=== PATIENT | female | born 1960 | race Caucasian/White ===

== ENCOUNTER → 2024-01-30 | Outpatient (CLI) | payer MEDICARE, BC | LOC: M WHC 09:25 | PROVIDERS: ATTEND Family Medicine | DX: Z12.31 Encounter for screening mammogram for malignant neoplasm of breast (principal) ==

== ENCOUNTER → 2025-01-21 | Outpatient (CLI) | payer MEDICARE, BC ==
[2025-01-21 10:47] LABS: BASO # 0.0 10^3/uL (0.0-0.2); BASO % 0.8 % (0.0-1.0); EOS # 0.1 10^3/uL (0.0-0.5); EOS % 1.1 % (0.0-3.0); LYMPH # 1.3 10^3/uL (1.5-5.0); LYMPH % 25.1 % (24.0-44.0); MONO # 0.5 10^3/uL (0.0-0.8); MONO % 9.7 % (2.0-8.0); NEUTROPHILS # 3.3 10^3/uL (1.5-8.5); NEUTROPHILS % 63.1 % (36.0-66.0); PLATELET COUNT, AUTOMATED 205 10^3/uL (150-450)
[2025-01-21 11:13] LABS: ALT/SGPT 25.0 U/L (7.0-40); AST/SGOT 19.0 U/L (<34); CALCIUM LEVEL 8.9 MG/DL (8.3-10.6); CARBON DIOXIDE LEVEL 29.0 MMOL/L (20-31); CHLORIDE LEVEL 106.0 MMOL/L (98-107); CHOLESTEROL LEVEL 204.0 MG/DL (<200); CHOLESTEROL RISK RATIO 2.72 (<5); CREATININE FOR GFR 0.8 MG/DL (0.55-1.30); GLOMERULAR FILTRATION RATE 81.2 (>45); LDL CHOLESTEROL 113.4 MG/DL (<100); NON-HDL-C 129.2 MG/DL; POTASSIUM SERUM 4.5 MMOL/L (3.5-5.1); SODIUM LEVEL 139.0 MMOL/L (136-145); TOTAL 25(OH) VITAMIN D 67.4 NG/ML (20.0-100.0); TRIGLYCERIDES LEVEL 79.0 MG/DL (<150)
[2025-01-21 11:15] LABS: FREE T4 1.44 NG/DL (0.89-1.76)
== END ==
LOC: M PLALAB 08:27
PROVIDERS: ATTEND Family Medicine
DX: Z00.00 Encounter for general adult medical examination without abnormal findings (principal); M85.9 Disorder of bone density and structure, unspecified; E03.9 Hypothyroidism, unspecified

== ENCOUNTER → 2025-02-04 | Outpatient (CLI) | payer MEDICARE, BC | LOC: M WHC 13:18 | PROVIDERS: ATTEND Family Medicine | DX: Z12.31 Encounter for screening mammogram for malignant neoplasm of breast (principal); M81.0 Age-related osteoporosis without current pathological fracture ==